=== PATIENT | female | born 1935 ===

== ENCOUNTER 2018-09-09 07:31 | Emergency (ER) | payer OTHER ==
[~2018-09-09] VITALS: Ht 160 cm; Wt 67.1 kg
[2018-09-09] MEDS ORDERED: SYNTHROID112 MCG PO (07:43)
[2018-09-09] MEDS ORDERED: LABETALOL HCL100 MG PO (07:44)
[2018-09-09] MEDS ORDERED: METFORMIN HCL500 MG PO (07:44)
[2018-09-09] MEDS ORDERED: AVAPRO150 MG PO (07:44)
[2018-09-09] MEDS ORDERED: PLAVIX75 MG PO (07:44)
== END 2018-09-09 12:02 | disposition home or self-care (01) ==
LOC: ER 07:31
DX: R00.2 Palpitations (principal); R25.1 Tremor, unspecified; I16.0 Hypertensive urgency; I10 Essential (primary) hypertension

== ENCOUNTER 2018-09-18 01:31 | Inpatient (IN) | payer OTHER ==
[~2018-09-18] VITALS: Ht 160 cm; Wt 61.2 kg
[~2018-09-18 01:31] MED LIST: AVAPRO150 MG PO; LABETALOL HCL100 MG PO; METFORMIN HCL500 MG PO; PLAVIX75 MG PO; SYNTHROID112 MCG PO
[2018-09-19] MEDS ORDERED: AVAPRO150 MG PO (13:03)
[2018-09-19] MEDS ORDERED: SYNTHROID112 MCG PO (13:03)
[2018-09-19] MEDS ORDERED: METFORMIN HCL500 MG PO (13:03)
[2018-09-19] MEDS ORDERED: ABANEU-SL TABL1 EACH SL (13:03)
[2018-09-19] MEDS ORDERED: FOLIC ACID1 MG PO (13:03)
[2018-09-19] MEDS ORDERED: PLAVIX75 MG PO (13:03)
== END 2018-09-19 13:26 | disposition home or self-care (01) | DRG 641 ==
LOC: ER 01:31 → SEC-K 14:17 → MEDJ 14:17 → SEC-K 16:20 → MEDJ 17:01
PROC: B030ZZZ Magnetic Resonance Imaging (MRI) of Brain (ICD-10-PCS; principal; 2018-09-18)
DX: E87.1 Hypo-osmolality and hyponatremia (principal); E11.9 Type 2 diabetes mellitus without complications; I10 Essential (primary) hypertension; E03.8 Other specified hypothyroidism
CPT/HCPCS: 70551

== ENCOUNTER 2018-09-30 02:09 | Emergency (ER) | payer OTHER ==
[~2018-09-30] VITALS: Ht 160 cm; Wt 67.1 kg
[~2018-09-30 02:09] MED LIST changes: +ABANEU-SL TABL1 EACH SL; +FOLIC ACID1 MG PO
[2018-09-30] MEDS ORDERED: MEDROLPACK PO (06:07)
[2018-09-30] MEDS ORDERED: TRIAMCINOLONE A15 G3 TOP (06:07)
[2018-09-30] MEDS ORDERED: ATARAX50 MG PO (06:07)
== END 2018-09-30 08:13 | disposition home or self-care (01) ==
LOC: ER 02:09
DX: L50.0 Allergic urticaria (principal); E87.1 Hypo-osmolality and hyponatremia; I16.1 Hypertensive emergency; I10 Essential (primary) hypertension; T50.995A Adverse effect of other drugs, medicaments and biological substances, initial encounter; Y92.89 Other specified places as the place of occurrence of the external cause

== ENCOUNTER 2021-07-29 12:07 | Emergency (ER) | payer OTHER ==
[~2021-07-29] VITALS: Ht 160 cm; Wt 72.6 kg
[~2021-07-29 12:07] MED LIST changes: +ATARAX50 MG PO; +MEDROLPACK PO; +TRIAMCINOLONE A15 G3 TOP
[2021-07-29] MEDS ORDERED: NORVASC2.5 M1 PO (12:38)
[2021-07-29] MEDS ORDERED: ZOCOR20 MG PO (12:38)
[2021-07-29] MEDS ORDERED: LABETALOL HCL100 MG PO (12:38)
[2021-07-29] MEDS ORDERED: MEDROLPACK PO (19:46)
== END 2021-07-29 22:20 | disposition home or self-care (01) ==
LOC: ER 12:07
DX: R60.0 Localized edema (principal); R53.1 Weakness; G12.29 Other motor neuron disease; T36.8X5A Adverse effect of other systemic antibiotics, initial encounter; Y92.89 Other specified places as the place of occurrence of the external cause

== ENCOUNTER 2021-08-12 14:50 | Emergency (ER) | payer OTHER ==
[~2021-08-12] VITALS: Ht 157.5 cm; Wt 60.3 kg
[~2021-08-12 14:50] MED LIST changes: +NORVASC2.5 M1 PO; +ZOCOR20 MG PO
[2021-08-12] MEDS ORDERED: ATACAND4 MG (15:12)
[2021-08-12] MEDS ORDERED: XOPENEX0.63 MG/3 IH (21:58)
[2021-08-12] MEDS ORDERED: TUSSIN DM SYRU118 ML PO (22:22)
== END 2021-08-12 22:41 | disposition home or self-care (01) ==
LOC: ER 14:50
DX: F03.90 Unspecified dementia, unspecified severity, without behavioral disturbance, psychotic disturbance, mood disturbance, and anxiety (principal); R06.02 Shortness of breath; R45.1 Restlessness and agitation; F41.8 Other specified anxiety disorders

== ENCOUNTER 2021-08-28 17:17 | Emergency (ER) | payer OTHER ==
[~2021-08-28] VITALS: Ht 162.6 cm; Wt 63.5 kg
[~2021-08-28 17:17] MED LIST changes: +ATACAND4 MG; +TUSSIN DM SYRU118 ML PO; +XOPENEX0.63 MG/3 IH
[2021-08-28] MEDS ORDERED: MOTION SICKNESS25 M1 PO (22:04)
[2021-08-28] MEDS ORDERED: XOPENEX0.63 MG/3 IH (22:04)
== END 2021-08-28 22:41 | disposition home or self-care (01) ==
LOC: ER 17:17
DX: R42 Dizziness and giddiness (principal); R06.02 Shortness of breath; F02.80 Dementia in other diseases classified elsewhere, unspecified severity, without behavioral disturbance, psychotic disturbance, mood disturbance, and anxiety; I10 Essential (primary) hypertension; Z03.818 Encounter for observation for suspected exposure to other biological agents ruled out

== ENCOUNTER 2022-09-22 10:52 | Emergency (ER) | payer OTHER ==
[~2022-09-22] VITALS: Ht 162.6 cm; Wt 40.8 kg
[~2022-09-22 10:52] MED LIST changes: +MOTION SICKNESS25 M1 PO
== END 2022-09-22 18:54 | disposition expired ==
LOC: ER 10:52